=== PATIENT | male | born 1955 | race Caucasian/White ===

== ENCOUNTER → 2017-06-14 | Outpatient (CLI) | payer BC ==
[2017-06-14 12:38] LABS: BASO % 0.9 %; BASO ABS # 0.03 K/uL (0-0.2); HEMATOCRIT 43.7 % (42-52); HEMOGLOBIN 14.9 g/dL (14.0-18.0); IG# 0.01 K/uL (0.00-0.02); LYMPH % 38.1 %; LYMPH ABS # 1.26 K/uL (1.2-3.4); MEAN CORPUSCULAR HGB CONC 34.1 g/dl (32-36); MEAN PLATELET VOLUME 10.8 fL (7.4-10.4); MONO % 17.5 %; MONO ABS # 0.58 K/uL (0.11-0.59); NEUT % 40.2 %; NEUT ABS # 1.33 K/uL (1.4-6.5); PLATELET COUNT 149 K/uL (130-400); RED CELL DISTRIBUTION WIDTH CV 12.9 % (11.5-14.5); RED CELL DISTRIBUTION WIDTH SD 42.8 fL (36.4-46.3); WHITE BLOOD COUNT 3.31 K/uL (4.8-10.8)
== END | disposition home or self-care (01) ==
LOC: C.LABMFLN 08:22
PROVIDERS: ATTEND Family Medicine
DX: Z12.5 Encounter for screening for malignant neoplasm of prostate (principal); R59.0 Localized enlarged lymph nodes